=== PATIENT | female | born 1935 | race Caucasian/White ===

== ENCOUNTER 2022-04-09 14:42 | Emergency (ER) | payer MEDICARE ==
[2022-04-09] MEDS ORDERED: Ketorolac Tromethamine 30 MG/ML VIAL ONE (15:11)
[2022-04-09] MEDS ORDERED: Acetaminophen 500 MG TAB ONE (15:11)
== END 2022-04-09 16:36 | disposition home or self-care (01) ==
LOC: CSHERS 14:42
DX: M54.9 Dorsalgia, unspecified (principal); I12.9 Hypertensive chronic kidney disease with stage 1 through stage 4 chronic kidney disease, or unspecified chronic kidney disease; N18.9 Chronic kidney disease, unspecified
CPT/HCPCS: 96372; 99283; J1885

== ENCOUNTER 2022-04-28 12:09 | Outpatient (CLI) | payer MEDICARE | END 2022-04-28 12:10 | disposition home or self-care (01) | LOC: CSHCT 12:09 | PROVIDERS: ATTEND Family Medicine | DX: K86.2 Cyst of pancreas (principal); E27.8 Other specified disorders of adrenal gland | CPT/HCPCS: 74170; 82565 ==

== ENCOUNTER 2022-07-20 08:11 | Outpatient (CLI) | payer MEDICARE ==
[2022-07-20] MEDS ORDERED: Iopamidol 370 76% 100 ML VIAL ONE (14:43)
== END 2022-07-20 08:12 | disposition home or self-care (01) ==
LOC: CSHCT 08:11
PROVIDERS: ATTEND Family Medicine
DX: K86.2 Cyst of pancreas (principal); E27.8 Other specified disorders of adrenal gland; N28.1 Cyst of kidney, acquired
CPT/HCPCS: 74170; 82565; Q9967

== ENCOUNTER 2023-02-10 12:48 | Outpatient (CLI) | payer MEDICARE | END 2023-02-10 12:49 | disposition home or self-care (01) | LOC: CSHMAMMO 12:48 | PROVIDERS: ATTEND Family Medicine | DX: Z12.31 Encounter for screening mammogram for malignant neoplasm of breast (principal) | CPT/HCPCS: 77063; 77067 ==